=== PATIENT | male | born 1960 | race African-American/Black ===

== ENCOUNTER 2017-01-27 03:00 | Emergency (ER) | payer OTHER ==
[~2017-01-27] VITALS: Ht 182.9 cm; Wt 68.2 kg
[2017-01-27 03:03] VITALS: BP 143/74; PULSE 76; RESP 16; O2SAT 100
--- NOTE | 2017-01-27 03:37 | ED.REPORT ---
HPI-Neck Pain Free Text HPI Notes Jan 27, 2017 ED Provider: Ajay Moss MD A 56 year old male with a history of chronic neck pain presents to the ED complaining of neck pain. This began over a week ago and has persisted since. The pt denies known trauma and states that the pain simply began when he woke up. The pain is accompanied by a headache as well as weakness, numbness, and tingling in his right arm. He denies fever. The pt was seen for his neck pain several years ago and had x-rays taken without a diagnosis. Nursing Notes Stated Complaint: NECK PAIN Chief Complaint: General Complaint Nursing Notes Reviewed: Yes Allergies: Coded Allergies: tramadol (Verified Adverse Reaction, Intermediate, "CRAWLING SENSATION ON SKIN", 07/03/15) Scheduled PRN Lorazepam (Lorazepam) 1 Mg Tablet 1 MG PO TID PRN PRN For Anxiety Naproxen (Naprosyn) 500 Mg Tablet 500 MG PO BID PRN PRN For Pain General Time Seen by Provider: 03:14 Chief Complaint Neck pain Hx Obtained From: Patient Arrived By: Walk-in Symptom Duration: Since onset Recent Healthcare: No recent doctor visit, No recent hospitalization Similar Sx Previous: Yes Past Medical History Past Medical History Chronic neck pain Past Surgical History Knee surgery Family History Reviewed, no relevant findings Smoking History Current Every Day Smoker Social History Alcohol Use: "Social" Drug Use: THC Ambulatory Status Independent Review of Systems Review of Systems Note: paresthesia of right arm Respiratory: Denies: Non-productive cough Cardiovascular: Denies: Chest pain GI: Denies: Abdominal pain Musculoskeletal: Reports: Neck pain, Denies: Back pain Neurologic: Reports: Numbness, Weakness Complete sys rev & neg: except as marked. Physical Exam Initial Vital Signs Vital Signs (First) Date Time Temp Pulse Resp B/P Pulse Ox O2 Delivery O2 Flow Rate FiO2 01/27/17 03:03 36.7 76 16 143/74 100 Room Air Initial VS: Reviewed General/Constitutional: Awake, Alert Neck: Atraumatic, Full range of motion guarded tender paraspinous muscles bilaterally Neurologic: Oriented X3, Speech NL, No motor deficits ENT: Atraumatic, Airway patent, Mucous membranes moist Respiratory / Chest: Atraumatic, Breath sounds NL, Breath sounds = bilat, No respiratory distress Cardiovascular: Heart rate NL, Regular rhythm, Heart sounds NL Back: Atraumatic, Full range of motion Upper Extremity / MS: Atraumatic, Full range of motion subjective decreased sensation in right arm vascularly intact Skin: Atraumatic, Color NL, No rash, Warm, Dry Head / Eyes: Atraumatic, Normocephalic, PERRL, EOMI Abdomen: Atraumatic, Soft, Non-tender Lower Extremity / Pelvis / MS: Atraumatic, Full range of motion Psychiatric: Affect NL, Mood NL Interpretation & Diagnostics CT C-Spine Interpretation CONCLUSION: No acute osseous pathology but there are diffuse degenerative changes of the cervical spine as demonstrated by small uncovertebral osteophytes resulting in neuroforaminal narrowing at C3-4 and C4-5 bilaterally. There is a fusion between C5 and C6. Interpretation / Wet Read by: Interpret - Radiologist Re-Eval/Medical Decision Med Decision/Clinical Course 56-year-old chronic neck pain presents with muscular spasm lasting about a week at this point. CT shows fusion of C5-C6, and multiple osteophytes at the C3-C4 level with narrowing of the neural foramina. He is provided with a soft collar. Home with Ativan, Naprosyn, single dose Decadron here. Discharged in stable condition. Follow up with PCP. Source of Hx: Old records Re-Evaluation/Progress : Time of Eval: 05:18 Patient Status: Condition improved Re-Evaluation/Progress Note: Pt rechecked, whose condition has improved. The plan for discharge is discussed. The pt understands and agrees with the plan. All questions are addressed at this time. Counseled Regarding: Diagnosis, Lab results, Need for follow-up, When/why to return to ED Discharge & Departure Primary Impression: Cervical radiculopathy Additional Impression: Cervical paraspinal muscle spasm Disposition: Home Discharge Condition All VS Reviewed: Yes Condition: Stable Patient Instructions: Cervical Radiculopathy (ED), Spasmodic Torticollis (ED) Additional Instructions: Wear soft collar full-time for for five days and then nights for another week to ten days after that. Lorazepam up to three times daily for muscle spasm. Naprosyn twice daily for pain. Follow-up with your doctor in the office. You may follow-up at residency clinic if you need a local physician. Referrals: [facility] ED Scribe Statement Portions of this note were transcribed by Manuel Rosales. I, Dr. Moss personally performed the history, physical exam and medical decision-making; I reviewed and confirmed the accuracy of the information in the transcribed note. Signed by: Valeria Sanchez, 01/27/2017 and 0556. copies to: [facility] Ajay Moss MD Jan 27, 2017 03:37 MANUEL ROSALES Jan 27, 2017 03:47
[2017-01-27] MEDS ORDERED: Ketorolac 30 mg/mL 2 mL Inj IM ONE (03:45)
[2017-01-27] MEDS ORDERED: Dexamethasone 20 mg/2 mL Oral Solution PO ONE (03:45)
[2017-01-27] MEDS ORDERED: NAPR500T PO (05:49)
[2017-01-27] MEDS ORDERED: LORA1TAB PO (05:49)
--- NOTE | 2017-01-27 08:22 | DRSVH ---
PROCEDURE: CT CERVICAL SPINE WITHOUT CONTRAST ([id number]) INDICATIONS: rt cervical radiculopathy TECHNIQUE: Noncontrast 3 mm thick sections acquired from the skull base to the T4 level. Sagittal and coronal r eformats were then constructed. For radiation dose reduction, the following was used: automated exp osure control, adjustment of mA and/or kV according to patient size. COMPARISON: None. FINDINGS: Image quality: Excellent. Bones: No fractures or dislocations. Visualized superior ribs are intact. Multilevel degenerative d isc disease and facet arthropathy are noted. C5-C6 ankylosis noted. Multiple levels of probable signi ficant neuroforaminal narrowing noted related to degenerative disease, uncovertebral joint hypertroph y and facet hypertrophy. Recommend MRI of the cervical spine for definitive characterization if clini selina indicated. Soft tissues: Prevertebral soft tissues are normal in thickness. No paravertebral hematomas. No ap ical pneumothoraces. Emphysematous changes noted in the lung apices. IMPRESSION: No fracture. No acute osseous lesion. If symptoms and/or clinical suspicion for patholog y persists, evaluation with MRI may be helpful for further assessment. Dictated by: Valerie Jones MD, PhD on 01/27/2017 at 8:12 Approved by: Valerie Jones MD, PhD on 01/27/2017 at 8:21
== END 2017-01-27 06:03 | disposition home or self-care (01) ==
LOC: SED 03:00
DX: M54.12 Radiculopathy, cervical region (principal); M62.838 Other muscle spasm; R51 Headache; R53.1 Weakness; R20.0 Anesthesia of skin; R20.2 Paresthesia of skin; F17.200 Nicotine dependence, unspecified, uncomplicated; Z88.5 Allergy status to narcotic agent